=== PATIENT | female | born 1990 | race African-American/Black ===

== ENCOUNTER 2020-06-20 07:30 | Emergency (ER) | payer OTHER ==
[~2020-06-20] VITALS: Ht 160 cm; Wt 65.0 kg
[2020-06-20 08:10] VITALS: BP 120/78
[2020-06-20] MEDS ORDERED: KETOROLAC 30MG/ML VIAL IV STA (08:10)
[2020-06-20] MEDS ORDERED: SODIUM CHLORIDE 0.9% 1,000 ML IV ONE (08:10)
[2020-06-20] MEDS ORDERED: ONDANSETRON HCL 4MG/2ML INJ IV STA (08:10)
[2020-06-20 08:35] LABS: BASOPHILS % 0.5 % (0.0-2.0); EOSINOPHILS % 0.5 % (0.0-5.0); HEMATOCRIT. 44.6 % (36.0-48.0); HEMOGLOBIN. 14.8 g/dL (12.0-16.0); LYMPHOCYTES % 14.8 % (20.0-50.0); MEAN CORPUSCULAR HEMOGLOBIN 28.1 pg (28.0-32.0); MEAN CORPUSCULAR VOLUME 84.7 fL (81.0-99.0); MEAN PLATELET VOLUME 10.2 fl (7.4-10.4); MONOCYTES % 2.8 % (2.0-8.0); NEUTROPHILS % 81.4 % (40.0-76.0); PLATELET 188 x1000/uL (130-400); RED BLOOD CELL COUNT 5.26 mill/uL (4.2-5.4); RED CELL DISTRIBUTION WIDTH 14.3 % (11.6-14.6)
[2020-06-20 08:41] LABS: CHLORIDE 110 mEq/L (98-107)
[2020-06-20 08:45] LABS: ETHANOL BLOOD < 10 mg/dL
[2020-06-20 09:07] LABS: HCG SCREEN NEGATIVE
[2020-06-20 10:12] LABS: CLARITY URINE CLEAR (CLEAR); COLOR URINE YELLOW (YELLOW); KETONES URINE 1+ (NEGATIVE); LEUKOCYTE ESTERASE URINE 1+ (NEGATIVE); NITRITE URINE NEGATIVE (NEGATIVE); OCCULT BLOOD URINE NEGATIVE (NEGATIVE); PH URINE 7.5 (4.5-8.0); PROTEIN URINE NEGATIVE (NEGATIVE); SPECIFIC GRAVITY URINE 1.015 (1.005-1.030); UROBILINOGEN URINE 0.2 E.U./dL (0.2-1.0)
[2020-06-20 10:22] LABS: *AMPHETAMINES SCREEN URINE NEGATIVE (NEGATIVE); *BARBITURATES SCREEN URINE NEGATIVE (NEGATIVE); *BENZODIAZEPINES SCREEN URINE NEGATIVE (NEGATIVE); METHADONE URINE SCREEN NEGATIVE (NEGATIVE); OPIATES URINE SCREEN NEGATIVE (NEGATIVE); PHENCYCLIDINE URINE SCREEN NEGATIVE (NEGATIVE)
[2020-06-20 10:24] LABS: *COCAINE SCREEN URINE PRESUMTIVE POSITIVE (NEGATIVE); CANNABINOID URINE SCREEN PRESUMTIVE POSITIVE (NEGATIVE)
== END 2020-06-20 11:39 | disposition home or self-care (01) ==
LOC: ER 08:24
DX: R10.9 Unspecified abdominal pain (principal); T40.5X1A Poisoning by cocaine, accidental (unintentional), initial encounter; N30.90 Cystitis, unspecified without hematuria; Y92.9 Unspecified place or not applicable
CPT/HCPCS: 36415; 74176; 80053; 80305; 80320; 81003; 81025; 83690; 84703; 85025; 93005; 96361; 96374; 96375; 99285; J1885; J2405; J7030; G0480